=== PATIENT | female | born 1930 | race Caucasian/White ===

== ENCOUNTER 2016-04-18 13:26 | Inpatient (IN) | payer OTHER, BC ==
[2016-04-18] VITALS (7 sets, daily range): BP systolic 153–200; BP diastolic 64–84; PULSE 70–75; TEMP 36.6–37.5; O2SAT 95–98; Ht 149.9 cm; Wt 48.9 kg
[~2016-04-18] VITALS: Ht 149.9 cm; Wt 48.9 kg
[~2016-04-18 13:26] MED LIST: CTP2 PO; CYAN10005 PO; FELO5TAB PO; FLX5 PO; INSDGIPEN SC; LSN20 PO; MULT-190 PO; SIMV10TA2 PO; TPRSR50 PO; VITA400C15 PO; VTMD1000 PO
[2016-04-18] MEDS ORDERED: ACETAMINOPHEN 325 MG TAB PO PRN (14:00)
[2016-04-18] MEDS ORDERED: ONDANSETRON INJ 2 MG/ML 2 ML VIAL IV PRN (14:00)
[2016-04-18] MEDS ORDERED: GLUCOSE 10 TABS/TUBE PO PRN (14:30)
[2016-04-18] MEDS ORDERED: DEXTROSE 50% 50 ML SYR IV PRN (14:30)
[2016-04-18] MEDS ORDERED: GLUCOSE 40% GEL 15 GM TUBE PO PRN (14:30)
[2016-04-18] MEDS ORDERED: GLUCAGON FOR INJ 1 MG VIAL SQ PRN (14:30)
[2016-04-18 14:38] LABS: HEMATOCRIT 34.1 % (37-47); MEAN CORPUSCULAR HGB CONC 35.8 g/dl (32-36); MEAN PLATELET VOLUME 10.4 fL (7.4-10.4); PLATELET COUNT 222 K/uL (130-400); RED BLOOD COUNT 4.21 M/uL (4.2-5.4); WHITE BLOOD COUNT 5.54 K/uL (4.8-10.8)
--- NOTE | 2016-04-18 14:46 | DIAGNOSTIC IMAGING REPORT ---
CHEST ONE VIEW PORTABLE CLINICAL HISTORY: DYSPNEA COMPARISON STUDY: 04/18/2016 FINDINGS: The heart is borderline enlarged. There is no focal pulmonary consolidation. There is no overt failure. There is deviation of the trachea thoracic inlet to the left of midline. This raises the possibility of a thoracic inlet mass such as a right lobe thyroid goiter. The right paratracheal soft tissue shadow likely reflects ectatic great vessels.[ IMPRESSION: Possible right-sided thoracic inlet mass such as a thyroid goiter. No evidence of focal pulmonary consolidation. No evidence of overt failure. Electronically signed by: Adan Mcclellan M.D. 04/18/2016 2:44 PM
[2016-04-18 14:57] LABS: BUN/CREATININE RATIO 19.3 (10-20); CALCIUM 8.8 mg/dl (8.5-10.1); CREATININE 2.1 mg/dl (0.60-1.20); POTASSIUM 3.2 mmol/L (3.5-5.1)
[2016-04-18 15:36] LABS: THYROID STIMULATING HORMONE 2.11 uIu/ml (0.300-4.500)
[2016-04-18] MEDS ORDERED: SODIUM CHLORIDE 0.9% 1000ML 1,000 ML IV SCH (15:45)
[2016-04-18] MEDS ORDERED: NURSING VERBAL MED ORDER ONE ×3 (16:00→20:30)
[2016-04-18] MEDS ORDERED: POTASSIUM CHLORIDE 20 MEQ TABCR PO ONE (16:02)
[2016-04-18] MEDS ORDERED: HYDRALAZINE IV. PRN (16:15)
[2016-04-18] MEDS ORDERED: NSS + 20MEQ KCL 1000ML 1,000 ML IV SCH (16:30)
[2016-04-18] MEDS ORDERED: POTASSIUM CHLORIDE INJ 20 MEQ in SODIUM CHLORIDE 0.9% 1000ML 1,000 ML IV SCH (16:30)
--- NOTE | 2016-04-18 16:32 | History and Physical ---
History & Physical Date & Time of Service: Apr 18, 2016 at 15:48 Chief Complaint: Chf,Frequent Falls Primary Care Physician: Allan Hill M.D. History of Present Illness Source: patient, clinic records, hospital records Ms. Westbrook is an 85 y/o female with PMHx of T2DM, CKD Stage III, HTN, and HTN who was a direct admission from her PCP office for complaints of non-productive cough, sore throat, and generalized weakness with falls x 4 days. Patient states that she first developed the nonproductive cough prior to the sore throat. She says her throat hurts because of the coughing. At her PCP a CXR was performed that was negative for consolidation but states mild CHF with mild increase in cardiac size compared to previous studies with evidence of interstitial Dieudonne B lines at bases bilat. She also reports progressive generalized weakness and her legs intermittently giving out on her. She reports this has cause multiple falls. Last fall was today 04/18/16 as she was coming to the hospital from her PCP office. She states her sister brought her here and her sister fell causing her to fall. She is unsure if this was mechanical in nature however a Code Purple was initiated within the hospital. It appears that this was the event requiring the code. Patient however reports that she does not have any pain at this time. Only complaint is of generalized weakness. Per PCP note, strep and flu test negative. She reports elevated glucose readings over past week and has been drinking more fluids. Initial labs upon admission reveal: Na 124, Potassium 3.2, BNP 1775, TSH 2.110, and Trop 0.056. CXR performed here suggest possible R thoracic inlet mass questionable thyroid goiter. Patient is afebrile without leukocytosis. She will be admitted to telemetry for further evaluation and care. Past Medical/Surgical History Medical Problems: (1) Back pain Status: Chronic (2) CVA (cerebral vascular accident) Status: Resolved Family History Hypertension Social History Smoking Status: Former Smoker Drug Use: none Marital Status: Housing status: lives alone Occupational Status: retired Immunizations History of Influenza Vaccine: No History of Tetanus Vaccine?: No History of Pneumococcal: Yes Pneumococcal Date: Jun 27, 2002 History of Hepatitis B Vaccine: No Multi-Drug Resistant Organisms History of MDRO: No Allergies Coded Allergies: No Known Allergies (Verified , 10/24/10) Home Medications Scheduled Cholecalciferol (Vitamin D3), 1,000 UNITS PO DAILY Clonidine HCl (Clonidine HCl), 0.2 MG PO QAM Cyanocobalamin (Vitamin B-12), 1,000 MCG PO DAILY Cyclobenzaprine HCl (Cyclobenzaprine HCl), 5 MG PO QAM Felodipine (Plendil), 5 MG PO DAILY Insulin Glargine (Lantus Solostar), 10 UNIT SC BID Lisinopril (Lisinopril), 20 MG PO QAM Metoprolol Succinate (Metoprolol Succinate ER), 50 MG PO DAILY Ocuvite Preservision (Ocuvite Preservision), 1 TAB PO DAILY Simvastatin (Zocor), 10 MG PO QPM Tocopheryl Acet,Dl-Alpha (Vitamin E), 400 INTER.UNIT PO DAILY Review of Systems Constitutional: + weakness, No chills, No fever, No sweats Eyes: No worsening of vision ENT: + sore throat, No nasal symptoms Respiratory: + cough, + dyspnea on exertion, No dyspnea at rest, No shortness of breath, No sputum Cardiovascular: No chest pain Abdomen: No constipation, No diarrhea, No nausea, No pain, No vomiting Musculoskeletal: No calf pain, No swelling Genitourinary - Female: No dysuria Neurologic: + weakness Endocrine: No fatigue Hematologic / Lymphatic: No abnormal bleeding/bruising, No clotting problems Integumentary: No rash Physical Exam Vital Signs Date Time Temp Pulse Resp B/P Pulse Ox O2 Delivery O2 Flow Rate FiO2 04/18/16 14:00 36.6 75 18 182/84 97 Room Air General Appearance: WD/WN, no apparent distress, + thin Head: normocephalic, atraumatic Eyes: sclerae normal ENT: hearing grossly normal Neck: supple, no JVD, trachea midline Respiratory/Chest: no respiratory distress, no accessory muscle use, + crackles (bases bilat ) Cardiovascular: regular rate, rhythm, no gallop, no murmur Abdomen/GI: normal bowel sounds, non tender, soft Back: normal inspection, no CVA tenderness Extremities/Musculoskelatal: no calf tenderness, no pedal edema Neurologic/Psych: alert, oriented x 3 Skin: normal color, warm/dry Diagnostics Laboratory Results Results Past 24 Hours Test 04/18/16 14:23 04/18/16 14:24 Range/Units White Blood Count 5.54 4.8-10.8 K/uL Red Blood Count 4.21 4.2-5.4 M/uL Hemoglobin 12.2 12.0-16.0 g/dL Hematocrit 34.1 37-47 % Mean Corpuscular Volume 81.0 80-100 fL Mean Corpuscular Hemoglobin 29.0 25-34 pg Mean Corpuscular Hemoglobin Concent 35.8 32-36 g/dl RDW Standard Deviation 40.2 36.4-46.3 fL RDW Coefficient of Variation 13.4 11.5-14.5 % Platelet Count 222 130-400 K/uL Mean Platelet Volume 10.4 7.4-10.4 fL Sodium Level 124 136-145 mmol/L Potassium Level 3.2 3.5-5.1 mmol/L Chloride Level 87 98-107 mmol/L Carbon Dioxide Level 24 21-32 mmol/L Anion Gap 13.0 3-11 mmol/L Blood Urea Nitrogen 41 7-18 mg/dl Creatinine 2.10 0.60-1.20 mg/dl Est Creatinine Clear Calc Drug Dose 12.9 ml/min Estimated GFR () 23.9 Estimated GFR (Non- 20.6 BUN/Creatinine Ratio 19.3 10-20 Random Glucose 270 70-99 mg/dl Calcium Level 8.8 8.5-10.1 mg/dl Troponin I 0.056 0-0.045 ng/ml Pro-B-Type Natriuretic Peptide 1775 0-1800 pg/ml Thyroid Stimulating Hormone (TSH) 2.110 0.300-4.500 uIu/ml Bedside Glucose 275 70-90 mg/dl Impression Assessment and Plan Ms. Westbrook is an 85 y/o female with PMHx of T2DM, CKD Stage III, HTN, and HTN who was a direct admission from her PCP office for complaints of non-productive cough, sore throat, and generalized weakness with falls x 4 days. Initial labs upon admission reveal: Na 124, Potassium 3.2, BNP 1775, TSH 2.110, and Trop 0.056. CXR performed here suggest possible R thoracic inlet mass questionable thyroid goiter. Patient is afebrile without leukocytosis. She will be admitted to telemetry for further evaluation and care. Acute Congestive Heart Failure? - Imaging and Studies -- CXR (outpatient) - mild increased cardiac size, mild CHF, interstitial Dieudonne B lines at lung bases bilat; early failure -- CXR - image and report reviewed - possible R thoracic inlet mass - thyroid goiter? -- BNP 1775 -- Echo (2011) - EF 55-60%; moderate L atrium dilation; severely elevated RVSP; no mention of diastolic dysfunction - Echo - pending Elevated Troponin: Possibly 2/2 REGGIE will R/O ACS - Serial cardiac enzymes - initial trop 0.056 REGGIE Superimposed on CKD Stage III: - Cr baseline possibly 1.5-1.6 - Only 1 L NSS + 20 mEq KCL Hyponatremia: - Will place a fluid restriction and trend Na - Pending re-evaluation will need to R/O SIADH Hypokalemia: - 1 L NSS + 20 mEq KCl then stop - KCl 40 mEq now - Trend BMP HTN: - Felodipine 5 mg daily - Lisinopril 20 mg daily - Metoprolol Succ 50 mg daily - Hydralazine PRN T2DM: - Lantus 10 units SC BID - SSI - goal range 100-150; correction factor 35 Frequent Falls: - PT/OT Evaluations DVT Prophylaxis: - Heparin 5000 units Q12H Code Status: - FULL RESUSCITATION PA Physician Supervision Note: I interviewed and examined the patient. Discussed with Amy Brito PAC and agree with findings and plan as documented in the note. Any exceptions or clarifications are listed here: None Pt with recent fall and eval at pcp with concern for cough and suspected CHF Echo reveal preserved EF and no significant valve disease, probable pulmonary htn, consider cough bronchitis or ? 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 Y/N: Yes Risk Level: High Given or contraindicated: Unfractionated heparin SQ
[2016-04-18] MEDS ORDERED: HydrALAZINE HCL 20 MG/ML VIAL IV. PRN (16:45)
[2016-04-18 16:54] LABS: INR 0.9 (0.9-1.1); PROTHROMBIN TIME (PATIENT) 10.1 SECONDS (9.0-12.0)
--- NOTE | 2016-04-18 18:10 | ECHOCARDIOGRAM REPORT ---
*NOTICE TO RECEIVING DEMOCRAT AGENCY This information is strictly Confidential and protected under [place] law. [place] law prohibits you from making any further disclosure of this information unless further disclosure is expressly permitted by the written consent of the person to whom it pertains or is authorized by law. A general authorization for the release of medical or other information is not sufficient for this purpose. Hospital accepts no responsibility if the information is made available to any other person, INCLUDING THE PATIENT. Interpretation Summary * Name: NORMA VAZQUEZ Study Date: 04/18/2016 03:12 PM BP: 182/84 mmHg * Patient Location: C.2T\S\S242\S\2 HR: 75 * : 1930 (M/d/yyy) Gender: Female Height: 59 in * Age: 85 yrs Ethnicity: CA Weight: 106 lb * Ordering Physician: Dayne Hager * Performed By: Lavonne Stewart RDCS * * Reason For Study: Congestive heart failure * BSA: 1.4 m2 * -- Conclusions -- * 1. Normal left ventricular size and systolic function. EF 55-60%. No regional wall motion abnormalities. Mild concentric left ventricular hypertrophy. * 2. There is mild mitral regurgitation. * 3. Normal estimated right ventricular systolic pressure; RVSP 37 mmHg. * 4. Compared to prior study on 11/05/2010, estimated RVSP has improved and tricuspid regurgitation no longer appears moderate. Procedure Details * A complete two-dimensional transthoracic echocardiogram was performed (2D, M-mode, Doppler and color flow Doppler). Left Ventricle * Normal left ventricular size and systolic function. EF 55-60%. No regional wall motion abnormalities. Mild concentric left ventricular hypertrophy. Right Ventricle * The right ventricle is normal in size and function. * The right ventricular systolic function is normal as assessed by tricuspid annular plane systolic excursion (TAPSE) (normal >1.5 cm). Atria * The left atrial size is normal. * Right atrial size is normal. * There is no evidence of atrial septal defect, but resolution does not allow assessment for a patent foramen ovale. Mitral Valve * There is mild mitral annular calcification. * There is no mitral valve stenosis. * There is mild mitral regurgitation. Tricuspid Valve * The tricuspid valve is not well visualized, but is grossly normal. * There is no tricuspid stenosis. * There is mild tricuspid regurgitation. Aortic Valve * The aortic valve is trileaflet. * No hemodynamically significant valvular aortic stenosis. * Trace aortic regurgitation. Pulmonic Valve * The pulmonary valve is inadequately visualized, but the Doppler data is adequate for interpretation. * There is no pulmonic valvular stenosis. * There is no significant pulmonary regurgitation. Great Vessels * The aortic root is normal size. * Ascending aorta of normal dimension * Normal pulmonary venous flow pattern. Pericardium/Pleural * There is no pericardial effusion. Great Vessels * Normal inferior vena cava size and collapsability with sniff indicates a normal right atrial pressure of 3 mmHg MMode 2D Measurements and Calculations IVSd 1.2 cm LVIDd 3.8 cm LVIDs 2.7 cm LVPWd 1.2 cm IVS/LVPW 0.99 FS 30.3 % EDV(Teich) 63.0 ml ESV(Teich) 26.2 ml EF(Teich) 58.4 % EDV(cubed) 56.0 ml ESV(cubed) 19.0 ml EF(cubed) 66.2 % LV mass(C)d 149.0 grams LV mass(C)dI 105.8 grams/m\S\2 CO(Teich) 2.9 l/min CI(Teich) 2.1 l/min/m\S\2 SV(Teich) 36.8 ml SI(Teich) 26.1 ml/m\S\2 CO(cubed) 3.0 l/min CI(cubed) 2.1 l/min/m\S\2 SV(cubed) 37.1 ml SI(cubed) 26.3 ml/m\S\2 Ao root diam 3.2 cm Ao root area 8.1 cm\S\2 ACS 1.4 cm LA dimension 3.1 cm asc Aorta Diam 3.0 cm LA/Ao 0.96 LVAd ap4 25.3 cm\S\2 LVLd ap4 7.0 cm EDV(MOD-sp4) 78.0 ml LVAs ap4 16.1 cm\S\2 LVLs ap4 6.2 cm ESV(MOD-sp4) 37.0 ml EF(MOD-sp4) 52.6 % LVAd ap2 19.1 cm\S\2 LVLd ap2 6.5 cm EDV(MOD-sp2) 46.0 ml LVAs ap2 10.8 cm\S\2 LVLs ap2 5.0 cm ESV(MOD-sp2) 20.0 ml EF(MOD-sp2) 56.5 % CO(MOD-sp4) 3.3 l/min CI(MOD-sp4) 2.3 l/min/m\S\2 SV(MOD-sp4) 41.0 ml SI(MOD-sp4) 29.1 ml/m\S\2 CO(MOD-sp2) 2.1 l/min CI(MOD-sp2) 1.5 l/min/m\S\2 SV(MOD-sp2) 26.0 ml SI(MOD-sp2) 18.5 ml/m\S\2 Doppler Measurements and Calculations MV E max marcus 86.1 cm/sec MV A max marcus 71.6 cm/sec MV E/A 1.2 MV V2 max 118.4 cm/sec MV max PG 5.6 mmHg MV V2 mean 57.5 cm/sec MV mean PG 1.6 mmHg MV V2 VTI 37.3 cm MV dec time 0.28 sec Ao V2 max 121.6 cm/sec Ao max PG 5.9 mmHg Ao max PG (full) 3.8 mmHg LV V1 max PG 2.1 mmHg LV V1 max 72.0 cm/sec PA V2 max 105.9 cm/sec PA max PG 4.5 mmHg PA acc slope 475.1 cm/sec\S\2 PA acc time 0.13 sec TR max marcus 290.2 cm/sec RVSP(TR) 37.0 mmHg RAP systole 3.0 mmHg PA pr(Accel) 22.0 mmHg
[2016-04-18] MEDS ORDERED: CHLORASEPTIC 1.4% SOLN 180 ML BTL MT PRN (20:15)
[2016-04-18] MEDS ORDERED: LORAZEPAM 2 MG/ML 1 ML VIAL IV PRN (20:15)
--- NOTE | 2016-04-18 20:21 | DIAGNOSTIC IMAGING REPORT ---
ULTRASOUND BILATERAL INTERNAL JUGULAR VEINS CLINICAL HISTORY: CHF. Frequent falls. Clinical concern for jugular vein thrombus. COMPARISON STUDY: No priors. FINDINGS: Real-time, grayscale, and color Doppler sonography of the right and left internal jugular veins is performed to assess for deep venous thrombosis. There is no sonographic evidence of deep venous thrombosis identified in the right or left internal jugular vein. Both vessels are patent and normally compressible. Only the jugular veins were assessed at the referring clinician's request. IMPRESSION: There is no sonographic evidence of deep venous thrombosis in the right or left internal jugular vein. Electronically signed by: Shashank Pang M.D. 04/18/2016 8:19 PM
[2016-04-18] MEDS: SIMVASTATIN 10 MG TAB PO SCH (20:29)
[2016-04-18] MEDS: HydrALAZINE HCL 20 MG/ML VIAL IV. PRN (20:30)
--- NOTE | 2016-04-18 20:56 | DIAGNOSTIC IMAGING REPORT ---
ULTRASOUND OF THE THYROID GLAND CLINICAL HISTORY: Thyroid goiter. COMPARISON STUDY: Thyroid ultrasound dated 03/16/2009. TECHNIQUE: Real-time, grayscale, and color flow sonography of the thyroid gland is performed utilizing a high-frequency linear transducer. Images are reviewed in the transverse and longitudinal planes. FINDINGS: Right lobe: The right lobe of the thyroid gland is atrophic and heterogeneous in echotexture, measuring 3.0 x 1.5 x 1.4 cm. A hyperechoic nodule in the upper pole measures 0.5 x 0.7 x 0.6 cm. Left lobe: The left lobe of the thyroid gland is atrophic and heterogeneous in echotexture, measuring 3.0 x 0.8 x 1.2 cm. No discrete nodules are identified. Isthmus: The thyroid isthmus is heterogeneous and measures 0.2 cm in AP diameter. IMPRESSION: The thyroid gland is atrophic and heterogeneous in echotexture. Electronically signed by: Shashank Pang M.D. 04/18/2016 8:54 PM
[2016-04-18 21:10] LABS: CKMB/CK RATIO 2.6 (0-3.0)
[2016-04-18] MEDS ORDERED: FUROSEMIDE INJ 20 MG in SYRINGE 0 ML IV ONE (21:30)
[2016-04-18] MEDS: LEVOFLOXACIN 500 MG TAB PO SCH (22:05)
[2016-04-18] MEDS: INSULIN GLARGINE SOLOSTAR 100 UNITS/ML 3 ML PEN SC SCH (22:08)
[2016-04-18] MEDS: INSULIN ASPART 100 UNITS/ML 3 ML PEN SC SCH (22:08)
[2016-04-18] MEDS: HEPARIN SOD 5000 UNIT/0.5 ML CARP SQ SCH (22:09)
[2016-04-19] VITALS (8 sets, daily range): BP systolic 91–173; BP diastolic 40–76; PULSE 49–76; TEMP 36.8–37.4; O2SAT 95–99
[2016-04-19 02:48] LABS: CKMB/CK RATIO 1.9 (0-3.0)
[2016-04-19 07:26] LABS: COMPLETE YES; HEMATOCRIT 32.6 % (37-47); IG% 0.2 %; LYMPH ABS # 1.19 K/uL (1.2-3.4); MEAN CELL VOLUME 81.1 fL (80-100); MEAN CORPUSCULAR HEMOGLOBIN 28.6 pg (25-34); MEAN CORPUSCULAR HGB CONC 35.3 g/dl (32-36); MEAN PLATELET VOLUME 9.9 fL (7.4-10.4); MONO % 18.1 %; NEUT % 58.7 %; PLATELET COUNT 194 K/uL (130-400); RED BLOOD COUNT 4.02 M/uL (4.2-5.4); WHITE BLOOD COUNT 5.18 K/uL (4.8-10.8)
[2016-04-19 08:10] LABS: BUN/CREATININE RATIO 18.2 (10-20); CALCIUM 8.4 mg/dl (8.5-10.1); CREATININE 1.7 mg/dl (0.60-1.20); POTASSIUM 3.5 mmol/L (3.5-5.1)
[2016-04-19] MEDS: LISINOPRIL 20 MG TAB PO SCH (08:18)
[2016-04-19] MEDS: METOPROLOL SUCC 50MG EXT REL TAB PO SCH (08:18)
[2016-04-19] MEDS: CLONIDINE HCL 0.1 MG TAB PO SCH (08:18)
[2016-04-19] MEDS: FELODIPINE 5 MG TABCR PO SCH (08:18)
[2016-04-19] MEDS: CYCLOBENZAPRINE HCL 5 MG TAB PO SCH (08:18)
[2016-04-19] MEDS: HEPARIN SOD 5000 UNIT/0.5 ML CARP SQ SCH ×2 (08:22→21:00)
[2016-04-19] MEDS: INSULIN GLARGINE SOLOSTAR 100 UNITS/ML 3 ML PEN SC SCH ×2 (08:22→21:00)
[2016-04-19] MEDS: INSULIN ASPART 100 UNITS/ML 3 ML PEN SC SCH ×4 (08:23→20:56)
[2016-04-19] MEDS: LEVOFLOXACIN 500 MG TAB PO SCH (11:41)
--- NOTE | 2016-04-19 14:45 | Progress Note ---
Subjective Date of Service: Apr 19, 2016. Subjective Pt evaluation today including: conversation w/ patient, physical exam, lab review, review of studies, review of inpatient medication list Pain: no pain PO Intake: adequate Voiding: no voiding problems patient reports feeling better after some IV fluids yesterday and she was started on Levaquin she still is feeling weak and unsure she can be at home safely, she fell twice yesterday therapy is ordered and will work with her no telemetry needs, discussed transfer to medical floor Review of Systems Constitutional: + fatigue, + weakness Respiratory: + dyspnea on exertion Neurologic: + balance problems, + weakness All Other Systems: Reviewed and Negative Medications Current Inpatient Medications Medications (Trade) Dose Ordered Sig/Tesha Route Start Time Stop Time Status Last Admin Dose Admin Acetaminophen (Tylenol Tab) 650 mg Q4H PRN PO 04/18/16 14:00 05/18/16 13:59 Ondansetron HCl (Zofran Inj) 4 mg Q6H PRN IV 04/18/16 14:00 05/18/16 13:59 Cyclobenzaprine HCl (Flexeril Tab) 5 mg QAM PO 04/19/16 09:00 05/19/16 08:59 04/19/16 08:18 5 MG Felodipine (Plendil Tabcr) 5 mg DAILY PO 04/19/16 09:00 05/19/16 08:59 04/19/16 08:18 5 MG Insulin Glargine (Lantus Solostar Pen) 10 unit BID SC 04/18/16 21:00 05/18/16 20:59 04/19/16 08:22 10 UNIT Lisinopril (Zestril Tab) 20 mg QAM PO 04/19/16 09:00 05/19/16 08:59 04/19/16 08:18 20 MG Metoprolol Succinate (Toprol Xl Tab) 50 mg DAILY PO 04/19/16 09:00 05/19/16 08:59 04/19/16 08:18 50 MG Simvastatin (Zocor Tab) 10 mg QPM PO 04/18/16 21:00 05/18/16 20:59 04/18/16 20:29 10 MG Clonidine HCl (Catapres Tab) 0.2 mg QAM PO 04/19/16 09:00 05/19/16 08:59 04/19/16 08:18 0.2 MG Glucose (Glucose 40% Gel) 15-30 GRAMS 15 GRAMS... UD PRN PO 04/18/16 14:30 05/18/16 14:29 Glucose (Glucose Chew Tab) 4-8 Tablets 4 Tabl... UD PRN PO 04/18/16 14:30 05/18/16 14:29 Dextrose (Dextrose 50% 50ML Syringe) 25-50ML OF 50% DW IV FOR... UD PRN IV 04/18/16 14:30 05/18/16 14:29 Glucagon (Glucagon Inj) 1 mg UD PRN SQ 04/18/16 14:30 05/18/16 14:29 Insulin Aspart (novoLOG ASPART) SLIDING SCALE G... ACHS SC 04/18/16 21:00 05/18/16 20:59 04/18/16 22:08 2 UNITS Heparin Sodium (Porcine) (Heparin Sq 5000 Unit/0.5ml) 5,000 unit Q12 SQ 04/18/16 21:00 05/18/16 20:59 04/19/16 08:22 5,000 UNIT Phenol (Chloraseptic 1.4% [place]) 2 sprays DAILY PRN MT 04/18/16 20:15 05/18/16 20:14 04/18/16 22:14 2 SPRAYS Lorazepam (Ativan Inj) 0.5 mg Q4H PRN IV 04/18/16 20:15 05/18/16 20:14 Hydralazine HCl (HydrALAZINE INJ) 10 mg Q4 PRN IV. 04/18/16 20:45 05/18/16 20:44 04/18/16 20:30 10 MG Levofloxacin (Levaquin Tab) 500 mg DAILY@11 PO 04/18/16 21:30 04/28/16 21:29 04/19/16 11:41 500 MG Objective Vital Signs Date Time Temp Pulse Resp B/P Pulse Ox O2 Delivery O2 Flow Rate FiO2 04/19/16 13:27 Room Air 04/19/16 13:17 36.8 53 22 119/54 99 Room Air 04/19/16 12:00 Room Air 04/19/16 11:38 36.8 59 18 91/55 98 Room Air 04/19/16 11:23 37.1 67 18 95 04/19/16 08:00 Room Air 04/19/16 07:40 37.1 67 18 161/70 95 Room Air 04/19/16 04:00 Room Air 04/19/16 03:29 37.4 70 18 164/76 96 Room Air 04/18/16 23:59 Room Air 04/18/16 23:25 37.5 71 18 153/64 95 Room Air 04/18/16 21:53 166/68 04/18/16 20:00 Room Air 04/18/16 19:22 36.8 71 22 200/66 98 Room Air 04/18/16 17:40 70 18 167/75 04/18/16 16:40 70 16 182/77 04/18/16 16:00 97 Room Air Physical Exam General Appearance: WD/WN, no apparent distress Eyes: normal inspection, EOMI, sclerae normal Neck: supple, no adenopathy, no JVD, trachea midline Respiratory/Chest: chest non-tender, lungs clear, normal breath sounds, no respiratory distress, no accessory muscle use Cardiovascular: regular rate, rhythm, no edema, no gallop, no JVD, no murmur Abdomen: normal bowel sounds, non tender, soft, no organomegaly Extremities: normal range of motion, non-tender, normal inspection, no pedal edema, no calf tenderness Neurologic/Psychiatric: program services planner II-XII nml as tested, alert, normal mood/affect, oriented x 3, + motor weakness (generalized, cannot stand independently) Skin: normal color, warm/dry, no rash Laboratory Results Last 24 Hours Test 04/18/16 20:12 04/18/16 20:20 04/19/16 02:05 04/19/16 07:09 Bedside Glucose 203 mg/dl Total Creatine Kinase 265 U/L 231 U/L Creatine Kinase MB 6.9 ng/ml 4.5 ng/ml Creatine Kinase MB Ratio 2.6 1.9 Troponin I 0.075 ng/ml 0.072 ng/ml White Blood Count 5.18 K/uL Red Blood Count 4.02 M/uL Hemoglobin 11.5 g/dL Hematocrit 32.6 % Mean Corpuscular Volume 81.1 fL Mean Corpuscular Hemoglobin 28.6 pg Mean Corpuscular Hemoglobin Concent 35.3 g/dl Platelet Count 194 K/uL Mean Platelet Volume 9.9 fL Neutrophils (%) (Auto) 58.7 % Lymphocytes (%) (Auto) 23.0 % Monocytes (%) (Auto) 18.1 % Eosinophils (%) (Auto) 0.0 % Basophils (%) (Auto) 0.0 % Neutrophils # (Auto) 3.04 K/uL Lymphocytes # (Auto) 1.19 K/uL Monocytes # (Auto) 0.94 K/uL Eosinophils # (Auto) 0.00 K/uL Basophils # (Auto) 0.00 K/uL RDW Standard Deviation 41.0 fL RDW Coefficient of Variation 13.7 % Immature Granulocyte % (Auto) 0.2 % Immature Granulocyte # (Auto) 0.01 K/uL Sodium Level 133 mmol/L Potassium Level 3.5 mmol/L Chloride Level 97 mmol/L Carbon Dioxide Level 25 mmol/L Anion Gap 11.0 mmol/L Blood Urea Nitrogen 31 mg/dl Creatinine 1.70 mg/dl Est Creatinine Clear Calc Drug Dose 15.9 ml/min Estimated GFR () 30.9 Estimated GFR (Non- 26.6 BUN/Creatinine Ratio 18.2 Random Glucose 82 mg/dl Calcium Level 8.4 mg/dl Magnesium Level 2.0 mg/dl Test 04/19/16 11:24 Bedside Glucose 131 mg/dl Assessment and Plan Ms. Westbrook is an 85 y/o female with PMHx of T2DM, CKD Stage III, HTN, and HTN who was a direct admission from her PCP office for complaints of non-productive cough, sore throat, and generalized weakness with falls x 4 days. Initial labs upon admission reveal: Na 124, Potassium 3.2, BNP 1775, TSH 2.110, and Trop 0.056. CXR performed here suggest possible R thoracic inlet mass questionable thyroid goiter. Patient is afebrile without leukocytosis. She will be admitted to telemetry for further evaluation and care. REGGIE Superimposed on CKD Stage III: Cr 2.1 on admission suggesting some acute failure - Cr baseline possibly 1.5-1.6 - given 1 L NSS + 20 mEq KCL - Cr improved to 1.7 today, acute component resolved, repeat labs in AM, encourage PO intake Weakness and falls due to pharyngitis, dehydration, hyponatremia: improved strength but not at baseline continue Levaquin for pharyngitis, complete 7 days total PT/OT ordered Elevated Troponin: Possibly 2/2 REGGIE will R/O ACS - Serial cardiac enzymes - initial trop 0.056, repeats both 0.07, doubt any clinical significance, no chest pain or EKG changes - likely up due to renal failure, safe to transfer off telemetry Hyponatremia: - nearly normal today, lift fluid restriction, due to dehydration, improved with NSS Hypokalemia: - resolved with IV and PO replacement HTN: - Felodipine 5 mg daily - Lisinopril 20 mg daily - Metoprolol Succ 50 mg daily - Hydralazine PRN T2DM: - Lantus 10 units SC BID - SSI - goal range 100-150; correction factor 35 Frequent Falls: - PT/OT Evaluations DVT Prophylaxis: - Heparin 5000 units Q12H Code Status: - FULL RESUSCITATION
[2016-04-19] MEDS: SIMVASTATIN 10 MG TAB PO SCH (21:06)
[2016-04-19] MEDS ORDERED: NURSING VERBAL MED ORDER ONE (22:00)
[2016-04-20] VITALS (11 sets, daily range): BP systolic 97–180; BP diastolic 50–75; PULSE 50–72; TEMP 36.2–37.2; O2SAT 94–97
[2016-04-20] MEDS: HydrALAZINE HCL 20 MG/ML VIAL IV. PRN ×2 (00:48→19:38)
[2016-04-20] MEDS: INSULIN ASPART 100 UNITS/ML 3 ML PEN SC SCH ×4 (07:34→21:28)
[2016-04-20] MEDS: LISINOPRIL 20 MG TAB PO SCH (09:46)
[2016-04-20] MEDS: CLONIDINE HCL 0.1 MG TAB PO SCH (09:46)
[2016-04-20] MEDS: LEVOFLOXACIN 500 MG TAB PO SCH (09:46)
[2016-04-20] MEDS: CYCLOBENZAPRINE HCL 5 MG TAB PO SCH ×2 (09:46→09:58)
[2016-04-20] MEDS: FELODIPINE 5 MG TABCR PO SCH (09:46)
[2016-04-20] MEDS: METOPROLOL SUCC 50MG EXT REL TAB PO SCH (09:47)
[2016-04-20] MEDS: HEPARIN SOD 5000 UNIT/0.5 ML CARP SQ SCH ×2 (09:54→21:29)
[2016-04-20 10:08] LABS: BUN/CREATININE RATIO 18.2 (10-20); CALCIUM 8.6 mg/dl (8.5-10.1); CREATININE 2.1 mg/dl (0.60-1.20); POTASSIUM 3.9 mmol/L (3.5-5.1)
[2016-04-20] MEDS ORDERED: SODIUM CHLORIDE 1 GM TAB PO ONE (10:25)
[2016-04-20] MEDS ORDERED: INSDGI SC (11:09)
[2016-04-20] MEDS ORDERED: METO25TA3 PO (11:11)
[2016-04-20] MEDS ORDERED: NURSING VERBAL MED ORDER ONE ×2 (11:30→17:45)
--- NOTE | 2016-04-20 15:46 | Progress Note ---
Subjective Date of Service: Apr 20, 2016. Subjective Pt evaluation today including: conversation w/ patient, conversation w/ family (sister), physical exam, lab review, review of inpatient medication list Pain: no pain PO Intake: adequate Voiding: no voiding problems patient feeling slightly better today, still quite weak she felt "off" later in the morning and found pulse was in 50's which was new for her reviewed medications, found she was actually being given too much metoprolol, dose corrected discussed going to rehab, she is agreeable, case management with discuss with her further Review of Systems Constitutional: + fatigue, + weakness Neurologic: + balance problems All Other Systems: Reviewed and Negative Medications Current Inpatient Medications Medications (Trade) Dose Ordered Sig/Tesha Route Start Time Stop Time Status Last Admin Dose Admin Acetaminophen (Tylenol Tab) 650 mg Q4H PRN PO 04/18/16 14:00 05/18/16 13:59 Ondansetron HCl (Zofran Inj) 4 mg Q6H PRN IV 04/18/16 14:00 05/18/16 13:59 Felodipine (Plendil Tabcr) 5 mg DAILY PO 04/19/16 09:00 05/19/16 08:59 04/20/16 09:46 5 MG Insulin Glargine (Lantus Solostar Pen) 10 unit BID SC 04/18/16 21:00 05/18/16 20:59 Future hold 04/19/16 08:22 10 UNIT Lisinopril (Zestril Tab) 20 mg QAM PO 04/19/16 09:00 05/19/16 08:59 04/20/16 09:46 20 MG Simvastatin (Zocor Tab) 10 mg QPM PO 04/18/16 21:00 05/18/16 20:59 04/19/16 21:06 10 MG Glucose (Glucose 40% Gel) 15-30 GRAMS 15 GRAMS... UD PRN PO 04/18/16 14:30 05/18/16 14:29 Glucose (Glucose Chew Tab) 4-8 Tablets 4 Tabl... UD PRN PO 04/18/16 14:30 05/18/16 14:29 Dextrose (Dextrose 50% 50ML Syringe) 25-50ML OF 50% DW IV FOR... UD PRN IV 04/18/16 14:30 05/18/16 14:29 Glucagon (Glucagon Inj) 1 mg UD PRN SQ 04/18/16 14:30 05/18/16 14:29 04/19/16 21:18 1 MG Insulin Aspart (novoLOG ASPART) SLIDING SCALE G... ACHS SC 04/18/16 21:00 05/18/16 20:59 04/20/16 13:46 2 UNITS Heparin Sodium (Porcine) (Heparin Sq 5000 Unit/0.5ml) 5,000 unit Q12 SQ 04/18/16 21:00 05/18/16 20:59 04/20/16 09:54 5,000 UNIT Phenol (Chloraseptic 1.4% Falcon) 2 sprays DAILY PRN MT 04/18/16 20:15 05/18/16 20:14 04/18/16 22:14 2 SPRAYS Lorazepam (Ativan Inj) 0.5 mg Q4H PRN IV 04/18/16 20:15 05/18/16 20:14 Hydralazine HCl (HydrALAZINE INJ) 10 mg Q4 PRN IV. 04/18/16 20:45 05/18/16 20:44 04/20/16 00:48 10 MG Levofloxacin (Levaquin Tab) 500 mg DAILY@11 PO 04/18/16 21:30 04/28/16 21:29 04/20/16 09:46 500 MG Sodium Chloride (Sodium Chloride Tab) 1 gm BID PO 04/20/16 21:00 05/20/16 20:59 Metoprolol Succinate (Toprol Xl Tab) 25 mg DAILY PO 04/21/16 09:00 05/21/16 08:59 Objective Vital Signs Date Time Temp Pulse Resp B/P Pulse Ox O2 Delivery O2 Flow Rate FiO2 04/20/16 15:17 36.2 67 16 101/53 94 Room Air 04/20/16 13:49 54 04/20/16 12:02 50 106/53 04/20/16 11:20 37.0 53 16 97/50 97 Room Air 04/20/16 11:19 37.0 72 16 95 Room Air 04/20/16 09:54 72 148/56 04/20/16 07:52 Room Air 04/20/16 07:52 37.0 65 16 127/52 95 Room Air 04/20/16 01:42 65 123/52 04/20/16 00:44 59 173/68 04/19/16 23:35 37.1 59 16 173/74 96 Room Air 04/19/16 23:30 Room Air 04/19/16 18:06 76 135/55 04/19/16 15:50 Room Air 04/19/16 15:44 37.0 49 16 107/40 97 Room Air Physical Exam General Appearance: WD/WN, no apparent distress Eyes: normal inspection, EOMI, sclerae normal ENT: normal ENT inspection, hearing grossly normal, pharynx normal Neck: supple, no adenopathy, no JVD, trachea midline Respiratory/Chest: chest non-tender, lungs clear, normal breath sounds, no respiratory distress, no accessory muscle use Cardiovascular: regular rate, rhythm, no edema, no gallop, no JVD, no murmur Abdomen: normal bowel sounds, non tender, soft, no organomegaly Extremities: normal range of motion, non-tender, normal inspection, no pedal edema, no calf tenderness Neurologic/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, alert, normal mood/affect, oriented x 3, + abnormal gait, + motor weakness Skin: normal color, warm/dry, no rash Laboratory Results Last 24 Hours Test 04/19/16 16:40 04/19/16 21:05 04/19/16 21:43 04/19/16 23:39 Bedside Glucose 80 mg/dl 77 mg/dl 154 mg/dl 243 mg/dl Test 04/20/16 07:27 04/20/16 07:59 04/20/16 09:32 04/20/16 11:00 Bedside Glucose 62 mg/dl 124 mg/dl Sodium Level 128 mmol/L Potassium Level 3.9 mmol/L Chloride Level 92 mmol/L Carbon Dioxide Level 21 mmol/L Anion Gap 15.0 mmol/L Blood Urea Nitrogen 38 mg/dl Creatinine 2.10 mg/dl Est Creatinine Clear Calc Drug Dose 12.9 ml/min Estimated GFR () 23.9 Estimated GFR (Non- 20.6 BUN/Creatinine Ratio 18.2 Random Glucose 203 mg/dl Calcium Level 8.6 mg/dl Osmolality 274 mOsm/kg Test 04/20/16 11:14 Bedside Glucose 196 mg/dl Assessment and Plan Ms. Westbrook is an 85 y/o female with PMHx of T2DM, CKD Stage III, HTN, and HTN who was a direct admission from her PCP office for complaints of non-productive cough, sore throat, and generalized weakness with falls x 4 days. Initial labs upon admission reveal: Na 124, Potassium 3.2, BNP 1775, TSH 2.110, and Trop 0.056. CXR performed here suggest possible R thoracic inlet mass questionable thyroid goiter. Patient is afebrile without leukocytosis. She will be admitted to telemetry for further evaluation and care. REGGIE Superimposed on CKD Stage III: Cr 2.1 on admission suggesting some acute failure, improved to 1.7 but then back up to 2.1 - adequately hydrated, suggests that her baseline may be closer to 2, adequate UO - hold on further IV fluid since she is drinking well - continue to monitor Cr Weakness and falls due to pharyngitis, dehydration, hyponatremia: improved strength but not at baseline continue Levaquin for pharyngitis, complete 7 days total PT/OT ordered - recommend rehab CM consulted Elevated Troponin: Possibly 2/2 REGGIE will R/O ACS - Serial cardiac enzymes - initial trop 0.056, repeats both 0.07, doubt any clinical significance, no chest pain or EKG changes - likely up due to renal failure, safe to transfer off telemetry Hyponatremia: initially thought to be dehydration, Na up to 133 with NSS over night, but now repeat is 128 - serum osmolality just slightly low at 273, waiting on urine sample for urine osmolality to see if it is appropriate or not to r/o SIADH - TSH normal, will check AM cortisol level, not taking thiazide as outpatient - will start on sodium chloride 1gm BID and follow sodium level Bradycardia: due to inappropriate dosing of Toprol, adjusted to 25mg from 50mg, monitor HR Hypokalemia: - resolved with IV and PO replacement HTN: - Felodipine 5 mg daily - Lisinopril 20 mg daily - Metoprolol Succ 25mg daily - Hydralazine PRN T2DM: - Lantus 10 units SC daily - SSI - goal range 100-150; correction factor 35 Frequent Falls: - PT/OT Evaluations: rehab DVT Prophylaxis: - Heparin 5000 units Q12H Code Status: - FULL RESUSCITATION
[2016-04-20] MEDS: SIMVASTATIN 10 MG TAB PO SCH (21:22)
[2016-04-20] MEDS: SODIUM CHLORIDE 1 GM TAB PO SCH (21:23)
[2016-04-21 03:56] VITALS: BP 147/68; PULSE 93; TEMP 36.8; O2SAT 93
[2016-04-21 06:58] VITALS: BP 152/60; PULSE 66; TEMP 36.8; O2SAT 95
[2016-04-21 07:19] LABS: HEMATOCRIT 33.5 % (37-47); MEAN CELL VOLUME 81.5 fL (80-100); MEAN CORPUSCULAR HEMOGLOBIN 28.5 pg (25-34); MEAN CORPUSCULAR HGB CONC 34.9 g/dl (32-36); MEAN PLATELET VOLUME 10.1 fL (7.4-10.4); PLATELET COUNT 247 K/uL (130-400); RED BLOOD COUNT 4.11 M/uL (4.2-5.4); WHITE BLOOD COUNT 5.25 K/uL (4.8-10.8)
[2016-04-21 07:51] LABS: BUN/CREATININE RATIO 16.9 (10-20); CALCIUM 8.7 mg/dl (8.5-10.1); CREATININE 2.2 mg/dl (0.60-1.20); MAGNESIUM 2.3 mg/dl (1.8-2.4)
[2016-04-21] MEDS: METOPROLOL SUCC 25MG EXT REL TAB PO SCH (08:59)
[2016-04-21] MEDS: FELODIPINE 5 MG TABCR PO SCH (08:59)
[2016-04-21] MEDS ORDERED: INSULIN GLARGINE SOLOSTAR 100 UNITS/ML 3 ML PEN SC SCH (09:00)
[2016-04-21] MEDS: LISINOPRIL 20 MG TAB PO SCH (09:00)
[2016-04-21] MEDS: SODIUM CHLORIDE 1 GM TAB PO SCH ×2 (09:00→21:03)
[2016-04-21] MEDS: LEVOFLOXACIN 500 MG TAB PO SCH (09:00)
[2016-04-21] MEDS: INSULIN ASPART 100 UNITS/ML 3 ML PEN SC SCH ×4 (09:07→21:08)
[2016-04-21] MEDS: HEPARIN SOD 5000 UNIT/0.5 ML CARP SQ SCH ×2 (09:08→21:10)
[2016-04-21] MEDS: INSULIN GLARGINE SOLOSTAR 100 UNITS/ML 3 ML PEN SC SCH (09:09)
[2016-04-21 11:12] VITALS: BP 144/57; PULSE 73; TEMP 37.2; O2SAT 93
--- NOTE | 2016-04-21 11:58 | Hospitalist Progress Note ---
Hospitalist Progress Note Date of Service Apr 21, 2016. Subjective Pt evaluation today including: conversation w/ patient, physical exam, chart review, lab review, review of studies, review of inpatient medication list PO Intake: Tolerating PO diet Voiding: no voiding problems The patient states that she still feels weak. She went to the bathroom and had trouble pulling up her adult diapers and was therefore exerting herself. She states that she has been shaking since then. She did not wake up shaky. The patient still complains o f a dry, non-productive cough. She states she has a sore throat from her coughing, but that it only affects the right side of her throat. She states that she only has pain when she is swallowing, not at rest. The patient denies fevers, chills, sweats, chest pain, palpitations, claudication, wheezing, shortness of breath, nausea, vomiting, abdominal pain, dysuria, hematuria, urinary retention, paralysis, numbness and tingling. Additional Comments: See HPI for pertinent positives and negatives. All other systems reviewed and negative. Objective Vital Signs Date Time Temp Pulse Resp B/P Pulse Ox O2 Delivery O2 Flow Rate FiO2 04/21/16 11:12 37.2 73 16 144/57 93 Room Air 04/21/16 07:37 Room Air 04/21/16 06:58 36.8 66 17 152/60 95 Room Air 04/21/16 03:56 36.8 93 16 147/68 93 Room Air 04/21/16 00:00 Room Air 04/20/16 23:00 37.2 68 16 137/75 94 Room Air 04/20/16 19:15 Room Air 04/20/16 19:13 36.7 66 16 180/71 95 Room Air 04/20/16 15:45 Room Air 04/20/16 15:17 36.2 67 16 101/53 94 Room Air 04/20/16 13:49 54 04/20/16 12:02 50 106/53 04/20/16 11:20 37.0 53 16 97/50 97 Room Air 04/20/16 11:19 37.0 72 16 95 Room Air Physical Exam General Appearance: WD/WN, no apparent distress Eyes: normal inspection, PERRL, EOMI ENT: normal ENT inspection, hearing grossly normal, pharynx normal Neck: supple, no adenopathy, no JVD, trachea midline Respiratory/Chest: lungs clear, normal breath sounds, no respiratory distress, + decreased breath sounds Cardiovascular: regular rate, rhythm, no gallop, no murmur Abdomen: normal bowel sounds, non tender, soft Extremities: non-tender, normal inspection, no pedal edema Neurologic/Psychiatric: alert, normal mood/affect, oriented x 3 Skin: normal color, warm/dry, no rash Laboratory Results Last 24 Hours Test 04/20/16 16:40 04/20/16 19:05 04/20/16 20:40 04/21/16 07:05 Bedside Glucose 129 mg/dl 217 mg/dl Urine Osmolality 437 mOms/kg Urine Random Sodium 7 mEq/L White Blood Count 5.25 K/uL Red Blood Count 4.11 M/uL Hemoglobin 11.7 g/dL Hematocrit 33.5 % Mean Corpuscular Volume 81.5 fL Mean Corpuscular Hemoglobin 28.5 pg Mean Corpuscular Hemoglobin Concent 34.9 g/dl RDW Standard Deviation 43.1 fL RDW Coefficient of Variation 14.4 % Platelet Count 247 K/uL Mean Platelet Volume 10.1 fL Sodium Level 125 mmol/L Potassium Level 4.0 mmol/L Chloride Level 91 mmol/L Carbon Dioxide Level 21 mmol/L Anion Gap 13.0 mmol/L Blood Urea Nitrogen 37 mg/dl Creatinine 2.20 mg/dl Est Creatinine Clear Calc Drug Dose 12.3 ml/min Estimated GFR () 22.6 Estimated GFR (Non- 19.5 BUN/Creatinine Ratio 16.9 Random Glucose 183 mg/dl Calcium Level 8.7 mg/dl Magnesium Level 2.3 mg/dl Cortisol AM Sample 28.49 mcg/dl Test 04/21/16 07:21 Bedside Glucose 173 mg/dl Assessment and Plan 85 y/o female with a history of DM II, CKD Stage III, and HTN who presents for a direct admission on 04/18 with a non-productive cough, sore throat, and generalized weakness with falls x 4 days. Initial labs upon admission reveal: Na 124, Potassium 3.2, BNP 1775, TSH 2.110, and Trop 0.056. CXR performed here suggest possible R thoracic inlet mass questionable thyroid goiter. Patient is afebrile without leukocytosis. She will be admitted to telemetry for further evaluation and care. REGGIE Superimposed on CKD Stage III: baseline creatinine 1.5-1.6. Cr 2.1 on admission suggesting some acute failure, improved to 1.7 after receiving IVF, back up to 2.1 when fluids stopped and fluid restriction placed -Creatinine 2.2 on 04/21 -IVF NSS at 80 cc/hr -Hold lisinopril -Continue to monitor Cr Weakness and falls due to pharyngitis, dehydration, hyponatremia: improved strength but not at baseline -Continue Levaquin for pharyngitis, complete 7 days total, on day #4 -PT/OT ordered - recommend acute rehab -CM consulted Elevated Troponin: Possibly 2/2 REGGIE will R/O ACS -Serial cardiac enzymes - initial trop 0.056, repeats both 0.07, doubt any clinical significance, no chest pain or EKG changes -Likely up due to renal failure, safe to transfer off telemetry Hyponatremia: initially thought to be dehydration, Na up to 133 with NSS over night, but now repeat is 128 -Serum osmolality just slightly low at 273 -Urine osmolality low at 437 -TSH normal -AM cortisol level 28.49, not taking thiazide as outpatient -Continue sodium chloride 1gm BID and follow sodium level Bradycardia--resolved -Due to incorrect home dose of Toprol, corrected to 25mg from 50mg, monitor HR Hypokalemia--resolved -Received IV and PO replacement HTN: -Felodipine 5 mg daily -Hold Lisinopril 20 mg daily due to REGGIE -Metoprolol Succ 25mg daily -Hydralazine PRN T2DM: -Lantus 16 units SC q am -Insulin sliding scale -Check BSGs q ac and qhs Frequent Falls: -PT/OT Evaluations: rehab DVT Prophylaxis: -Heparin 5000 units Q12H Code Status -Level I, FULL RESUSCITATION STATUS
[2016-04-21] MEDS: SODIUM CHLORIDE 0.9% 1000ML 1,000 ML IV SCH ×2 (13:45→23:52)
[2016-04-21 15:20] VITALS: BP 155/71; PULSE 71; TEMP 36.6; O2SAT 93
[2016-04-21] MEDS: SIMVASTATIN 10 MG TAB PO SCH (21:04)
[2016-04-21] MEDS ORDERED: NURSING VERBAL MED ORDER ONE (22:45)
[2016-04-21 23:10] VITALS: BP 165/61; PULSE 82; TEMP 37.1; O2SAT 93
[2016-04-21] MEDS: GUAIFENESIN SUGAR FREE 200 MG/10 ML UDC PO PRN (23:52)
[2016-04-22] VITALS (7 sets, daily range): BP systolic 114–189; BP diastolic 55–84; PULSE 82–99; TEMP 36.3–37.1; O2SAT 93–96
[2016-04-22] MEDS: HydrALAZINE HCL 20 MG/ML VIAL IV. PRN ×2 (04:10→20:37)
[2016-04-22 07:32] LABS: HEMATOCRIT 33.6 % (37-47); MEAN CORPUSCULAR HEMOGLOBIN 28.7 pg (25-34); MEAN CORPUSCULAR HGB CONC 35.4 g/dl (32-36); PLATELET COUNT 297 K/uL (130-400); RED BLOOD COUNT 4.15 M/uL (4.2-5.4); WHITE BLOOD COUNT 7.23 K/uL (4.8-10.8)
[2016-04-22 07:59] LABS: BUN/CREATININE RATIO 19.2 (10-20); CALCIUM 8.7 mg/dl (8.5-10.1); CREATININE 1.7 mg/dl (0.60-1.20); POTASSIUM 3.7 mmol/L (3.5-5.1)
[2016-04-22] MEDS: SODIUM CHLORIDE 1 GM TAB PO SCH ×2 (08:56→21:24)
[2016-04-22] MEDS: FELODIPINE 5 MG TABCR PO SCH (08:56)
[2016-04-22] MEDS: METOPROLOL SUCC 25MG EXT REL TAB PO SCH (08:57)
[2016-04-22] MEDS: INSULIN GLARGINE SOLOSTAR 100 UNITS/ML 3 ML PEN SC SCH (09:04)
[2016-04-22] MEDS: INSULIN ASPART 100 UNITS/ML 3 ML PEN SC SCH ×4 (09:04→21:26)
[2016-04-22] MEDS: HEPARIN SOD 5000 UNIT/0.5 ML CARP SQ SCH ×2 (09:05→21:27)
[2016-04-22] MEDS ORDERED: LEVOFLOXACIN CONSULT ACTIVE PRN (10:15)
[2016-04-22] MEDS: SODIUM CHLORIDE 0.9% 1000ML 1,000 ML IV SCH ×2 (11:57→23:58)
[2016-04-22] MEDS: GUAIFENESIN SUGAR FREE 200 MG/10 ML UDC PO PRN (12:03)
--- NOTE | 2016-04-22 15:26 | Hospitalist Progress Note ---
Hospitalist Progress Note Date of Service Apr 22, 2016. Subjective Pt evaluation today including: conversation w/ patient, conversation w/ family (spoke to daughter Shannan Westbrook on phone (cell [phone]) and sister Raegan Montgomery in room), physical exam, chart review, lab review, review of inpatient medication list PO Intake: Tolerating PO diet Voiding: no voiding problems Patient feeling well. She still complains of weakness and fatigue but think that it is improved from yesterday. She is no longer shaky. She states that she has some trouble swallowing the sodium chloride tablets because they stick to her tongue, but she is able to swallow her other mediations and food fine without difficulty. She is anxious for discharge. The patient denies fevers, chills, sweats, chest pain, palpitations, claudication, cough, wheezing, shortness of breath, nausea, vomiting, abdominal pain, dysuria, hematuria, urinary retention, paralysis, muscle weakness, numbness and tingling. Additional Comments: See HPI for pertinent positives and negatives. All other systems reviewed and negative. Objective Vital Signs Date Time Temp Pulse Resp B/P Pulse Ox O2 Delivery O2 Flow Rate FiO2 04/22/16 11:41 36.3 86 14 133/57 93 Room Air 04/22/16 07:37 36.8 89 16 161/64 95 Room Air 04/22/16 07:00 Room Air 04/22/16 05:21 153/61 04/22/16 04:07 36.9 82 18 189/84 93 Room Air 04/21/16 23:56 Room Air 04/21/16 23:10 37.1 82 16 165/61 93 Room Air 04/21/16 16:15 Room Air 04/21/16 15:20 36.6 71 16 155/71 93 Room Air Physical Exam General Appearance: WD/WN, no apparent distress Eyes: normal inspection, PERRL, EOMI ENT: normal ENT inspection, hearing grossly normal, pharynx normal Neck: supple, no JVD, trachea midline Respiratory/Chest: lungs clear, normal breath sounds, no respiratory distress, + decreased breath sounds Cardiovascular: regular rate, rhythm, no gallop, no murmur Abdomen: normal bowel sounds, non tender, soft Extremities: non-tender, normal inspection, no pedal edema Neurologic/Psychiatric: alert, normal mood/affect, oriented x 3 Skin: normal color, warm/dry, no rash Laboratory Results Last 24 Hours Test 04/21/16 16:33 04/21/16 20:42 04/22/16 07:10 04/22/16 07:58 Bedside Glucose 148 mg/dl 222 mg/dl 181 mg/dl White Blood Count 7.23 K/uL Red Blood Count 4.15 M/uL Hemoglobin 11.9 g/dL Hematocrit 33.6 % Mean Corpuscular Volume 81.0 fL Mean Corpuscular Hemoglobin 28.7 pg Mean Corpuscular Hemoglobin Concent 35.4 g/dl RDW Standard Deviation 42.3 fL RDW Coefficient of Variation 14.2 % Platelet Count 297 K/uL Mean Platelet Volume 10.0 fL Sodium Level 129 mmol/L Potassium Level 3.7 mmol/L Chloride Level 96 mmol/L Carbon Dioxide Level 19 mmol/L Anion Gap 14.0 mmol/L Blood Urea Nitrogen 33 mg/dl Creatinine 1.70 mg/dl Est Creatinine Clear Calc Drug Dose 15.9 ml/min Estimated GFR () 30.9 Estimated GFR (Non- 26.6 BUN/Creatinine Ratio 19.2 Random Glucose 177 mg/dl Calcium Level 8.7 mg/dl Test 04/22/16 11:51 Bedside Glucose 252 mg/dl Assessment and Plan 85 y/o female with a history of DM II, CKD Stage III, and HTN who presents for a direct admission on 04/18 with a non-productive cough, sore throat, and generalized weakness with falls x 4 days. Initial labs upon admission reveal: Na 124, Potassium 3.2, BNP 1775, TSH 2.110, and Trop 0.056. CXR performed here suggest possible R thoracic inlet mass questionable thyroid goiter. Patient is afebrile without leukocytosis. She will be admitted to telemetry for further evaluation and care. REGGIE Superimposed on CKD Stage III: baseline creatinine 1.5-1.6. Cr 2.1 on admission suggesting some acute failure, improved to 1.7 after receiving IVF, back up to 2.1 when fluids stopped and fluid restriction placed -Creatinine 2.2 on 04/21 -Creatinine 1.7 on 04/22 after IVF restarted -BUN improved to 33 and GFR improved to 26.6 on 04/22 -IVF NSS at 80 cc/hr -Hold lisinopril -Continue to monitor Cr Weakness and falls due to pharyngitis, dehydration, hyponatremia: improved strength but not at baseline -Continue Levaquin for pharyngitis, complete 7 days total, on day #4. Levaquin renally dosed to 250 mg q2d -PT/OT ordered - recommend acute rehab -CM consulted Elevated Troponin: Possibly 2/2 REGGIE will R/O ACS -Serial cardiac enzymes - initial trop 0.056, repeats both 0.07, doubt any clinical significance, no chest pain or EKG changes -Likely up due to renal failure, safe to transfer off telemetry Hyponatremia--improving. Initially thought to be dehydration, Na up to 133 with NSS over night, but now repeat is 128 -Sodium 129 on 04/22, improved from 125 on 12 -Serum osmolality just slightly low at 273 -Urine osmolality low at 437 -TSH normal -AM cortisol level 28.49, not taking thiazide as outpatient -Continue sodium chloride 1 gm BID, IVF as above and follow sodium level Bradycardia--resolved -Due to incorrect home dose of Toprol, corrected to 25mg from 50mg, monitor HR Hypokalemia--resolved -Received IV and PO replacement HTN: -Felodipine 5 mg daily -Hold Lisinopril 20 mg daily due to REGGIE -Metoprolol Succ 25mg daily -Hydralazine PRN T2DM: -Lantus 16 units SC q am -Insulin sliding scale -Check BSGs q ac and qhs Frequent Falls: -PT/OT Evaluations: rehab DVT Prophylaxis: -Heparin 5000 units Q12H Code Status -Level I, FULL RESUSCITATION STATUS Dispo -Anticipate discharge tomorrow as pt is improving on IVF. PT recommends acute inpatient rehab. Patient is refusing to do inpatient therapy. She states that she just wants to go home and does not want to stay anywhere else. I strongly recommended that she pursue inpatient rehab as it was not safe for her to go home in her current condition as she lives by herself. She states that her sister is going to stay with her for a few days. I discussed with her the risks of not going to rehab, such as increasing weakness, more falls, and readmission to the hospital. She accepts these risks and wants to have PT come to her home instead. This was also discussed with her daughter, Shannan Westbrook ( cell # [phone]) and sister, Raegan Montgomery. Case management is following, a referral being placed to [facility].
[2016-04-22] MEDS: SIMVASTATIN 10 MG TAB PO SCH (21:23)
[2016-04-23 03:42] VITALS: BP 167/69; PULSE 85; TEMP 36.9; O2SAT 96
[2016-04-23 07:23] VITALS: BP 145/66; PULSE 90; TEMP 36.9; O2SAT 96
[2016-04-23] MEDS: INSULIN ASPART 100 UNITS/ML 3 ML PEN SC SCH ×2 (08:00→12:38)
[2016-04-23 08:04] LABS: HEMATOCRIT 31.3 % (37-47); MEAN CELL VOLUME 82.2 fL (80-100); MEAN CORPUSCULAR HEMOGLOBIN 28.3 pg (25-34); MEAN CORPUSCULAR HGB CONC 34.5 g/dl (32-36); MEAN PLATELET VOLUME 9.8 fL (7.4-10.4); PLATELET COUNT 300 K/uL (130-400); RED BLOOD COUNT 3.81 M/uL (4.2-5.4); WHITE BLOOD COUNT 5.71 K/uL (4.8-10.8)
[2016-04-23 08:32] LABS: CALCIUM 8.9 mg/dl (8.5-10.1); CREATININE 1.5 mg/dl (0.60-1.20); MAGNESIUM 1.9 mg/dl (1.8-2.4); POTASSIUM 3.5 mmol/L (3.5-5.1)
[2016-04-23] MEDS: SODIUM CHLORIDE 1 GM TAB PO SCH (08:56)
[2016-04-23] MEDS: METOPROLOL SUCC 25MG EXT REL TAB PO SCH (08:56)
[2016-04-23] MEDS: FELODIPINE 5 MG TABCR PO SCH (08:57)
[2016-04-23] MEDS: INSULIN GLARGINE SOLOSTAR 100 UNITS/ML 3 ML PEN SC SCH (09:00)
[2016-04-23] MEDS: HEPARIN SOD 5000 UNIT/0.5 ML CARP SQ SCH (09:02)
[2016-04-23] MEDS ORDERED: LEVOFLOXACIN 250 MG TAB PO SCH (11:00)
[2016-04-23] MEDS: GUAIFENESIN SUGAR FREE 200 MG/10 ML UDC PO PRN (11:35)
[2016-04-23] MEDS: SODIUM CHLORIDE 0.9% 1000ML 1,000 ML IV SCH (12:38)
[2016-04-23] MEDS ORDERED: LVQ250 PO (14:34)
--- NOTE | 2016-04-23 14:58 | Discharge Instructions ---
Discharge Instructions Admission Reason for Admission: Chf,Frequent Falls Discharge Discharge Diagnosis / Problem: Weakness, Hyponatremia Discharge Goals Goal(s): Improve function, Improve nutritional status, Diagnostic testing, Therapeutic intervention Activity Recommendations Activity Limitations: as noted below Lifting Limitations: no more than 10 pounds Exercise/Sports Limitations: gradually increase as tolerated Shower/Bathe: no limitations Gradually increase activity as tolerated and as recommended by home physical therapy services. . Instructions / Follow-Up Instructions / Follow-Up You were admitted to the hospital with a cough, sore throat, weakness and frequent falls. You were found to have worsening kidney function as well as low sodium in potassium in your blood. An echocardiogram, or an ultrasound of your heart, was done, but this did not show any significant changes when compared to your last study. Your cough and sore throat were suspected to be due to bacterial pharyngitis, and you were started on an antibiotic called Levaquin. The potassium and sodium in your blood was replaced with IV fluids and IV electrolyte supplementation. The IV fluids also improved your kidney function, which may have contributed to your low sodium in the blood. Be sure to have adequate oral intake and food and liquids, as dehydration will worsen your kidney function again. Your symptoms did begin to improve, although your strength was still not back to your baseline. You were evaluated by physical therapy, and they did not think it was safe for you to return home in your current condition, especially because you live alone. Physical therapy recommended a stay at an inpatient acute rehab facility. You refused to do inpatient rehab, and we discussed the risks of not pursuing inpatient rehab such as increasing weakness, more falls, and readmission to the hospital. Instead, you will be sent home with home health services and home physical therapy. Since you live along, it is strongly recommend that you have family stay with you whenever they can to help with your daily activities since you are weaker than usual. A prescription for the antibiotic, Levaquin, was sent electronically to your pharmacy. You received 5 doses of the antibiotic while in the hospital. You have 2 more doses left to complete the course. Due to your kidney function, you will take this medication every other day. Please take Levaquin 250 mg by mouth every other day over the next 4 days. You received a dose today before discharge, so you next dose will be due 04/25/16 with your last dose on 04/27/16. Please follow up with your primary care provider in 1 week regarding your recent hospital stay. Please seek medical attention if you experience fevers, chest pain, shortness of breathing, shakiness, seizures, loss of consciousness, confusion, nausea, vomiting, or more falls. Current Hospital Diet Patient's current hospital diet: Diabetes Type 2 Diet Discharge Diet Recommended Diet: Diabetes Type 2 Diet Pending Studies Studies pending at discharge: no Medical Emergencies . Who to Call and When: Medical Emergencies: If at any time you feel your situation is an emergency, please call 911 immediately. . Non-Emergent Contact Non-Emergency issues call your: Primary Care Provider Call Non-Emergent contact if: you have any medication questions . Past History Medical & Surgical History: (1) Hyponatremia (2) Weakness (3) Frequent falls . "Provider Documentation" section prepared by Day Cedeno. VTE Core Measure Inpt VTE Proph given/why not?: Unfractionated heparin SQ, T.E.D. Stockings, SCD 's
--- NOTE | 2016-04-23 15:08 | Discharge Summary ---
Discharge Summary Admission Date: Apr 18, 2016 at 13:26 Discharge Date: Apr 23, 2016 Discharge Disposition: Home with services Principal Diagnosis: Hyponatremia, Weakness Immunizations: Have You Had Influenza Vaccine: No History of Tetanus Vaccine?: No History of Pneumococcal: Yes Pneumococcal Date: Jun 27, 2002 History of Hepatitis B Vaccine: No Medication Reconciliation New Medications: Levofloxacin (Levofloxacin) 250 Mg Tab 250 MG PO Q2D@1100 for 4 Days, #2 TAB Take 1 tablet by mouth every OTHER day. First dose due 04/25/16, second dose on 04/27/16. Continued Medications: Cholecalciferol (Vitamin D3) 1,000 Inter.unit Tab 2000 UNITS PO DAILY Cyanocobalamin (Vitamin B-12) 1,000 Mcg Tab 1000 MCG PO DAILY, 0 Refills Felodipine (Plendil) 5 Mg Tabcr 5 MG PO DAILY, TAB Insulin Glargine (Lantus) 100 Unit/Ml Inj 16 SC QAM, VIAL Lisinopril (Lisinopril) 20 Mg Tab 20 MG PO QAM for 30 Days, TAB Metoprolol Succ (Toprol Xl) (Toprol-Xl) 25 Mg Tabcr 25 MG PO DAILY, #30 TAB Ocuvite Preservision (Ocuvite Preservision) 1 Tab Tab 1 TAB PO DAILY, 0 Refills Simvastatin (Zocor) 10 Mg Tab 10 MG PO QPM Tocopheryl Acet,Dl-Alpha (Vitamin E) 400 Inter.unit Cap 400 INTER.UNIT PO DAILY, 0 Refills Discharge Exam Patient reports feeling well with no complaints. She states that she feels even stronger than yesterday. She is eager for discharge home and reiterated that she did not want to do in patient rehab at this time. Review of Systems: Constitutional: + fatigue (improved), + weakness (improved), No chills, No fever, No sweats Eyes: No diplopia, No eye pain, No worsening of vision ENT: No hearing loss, No sore throat, No tinnitus Respiratory: No cough, No shortness of breath, No wheezing Cardiovascular: No chest pain, No claudication, No palpitations Abdomen: No nausea, No pain, No vomiting Musculoskeletal: No calf pain, No joint pain, No muscle pain Genitourinary - Female: No dysuria, No hematuria, No urinary retention Neurologic: No numbness/tingling, No paralysis, No weakness Integumentary: No color change, No itch, No rash Physical Exam: General Appearance: WD/WN, no apparent distress Eyes: normal inspection, PERRL, EOMI ENT: normal ENT inspection, hearing grossly normal, pharynx normal Neck: supple, no JVD, trachea midline Respiratory/Chest: lungs clear, normal breath sounds, no respiratory distress, + decreased breath sounds Cardiovascular: regular rate, rhythm, no gallop, no murmur Abdomen / GI: normal bowel sounds, non tender, soft Extremities: normal inspection, no calf tenderness, no pedal edema Neurologic/Psychiatric: alert, normal mood/affect, oriented x 3 Skin: normal color, warm/dry, no rash Hospital Course 85 y/o female with a history of DM II, CKD Stage III, and HTN who presents for a direct admission on 04/18 with a non-productive cough, sore throat, and generalized weakness with falls x 4 days. Initial labs upon admission reveal: Na 124, Potassium 3.2, BNP 1775, TSH 2.110, and Trop 0.056. CXR performed here suggest possible R thoracic inlet mass questionable thyroid goiter. Patient is afebrile without leukocytosis. She will be admitted to telemetry for further evaluation and care. REGGIE Superimposed on CKD Stage III: baseline creatinine 1.5-1.6. Cr 2.1 on admission suggesting some acute failure, improved to 1.7 after receiving IVF, back up to 2.1 when fluids stopped and fluid restriction placed -Creatinine 2.2 on 04/21 -Creatinine 1.7 on 04/22 after IVF restarted. Creatinine 1.5 on 04/23, back to baseline -BUN improved to 33 and GFR improved to 26.6 on 04/22. BUN 23, GFR 31.0 on 04/23 with continued IVF -IVF NSS at 80 cc/hr. Encouraged that pt stay hydrated at discharge. -May resume lisinopril on discharge as renal function back to baseline Weakness and falls due to pharyngitis, dehydration, hyponatremia: improved strength but not at baseline -Continue Levaquin for pharyngitis, complete 7 days total, on day #5. Levaquin renally dosed to 250 mg q2d, received 5th dose on 04/25. Script sent to pharmacy for remaining 2 doses q2d -PT/OT ordered - recommend acute rehab. Pt refuses. -CM consulted Elevated Troponin: Possibly 2/2 REGGIE will R/O ACS -Serial cardiac enzymes - initial trop 0.056, repeats both 0.07, doubt any clinical significance, no chest pain or EKG changes -Likely up due to renal failure, safe to transfer off telemetry Hyponatremia--improving. Initially thought to be dehydration, Na up to 133 with NSS over night, but now repeat is 128 -Sodium 129 on 04/22, improved from 125 on 04/21 -Sodium 134 on 04/23 prior to discharge -Serum osmolality just slightly low at 273 -Urine osmolality low at 437 -TSH normal -AM cortisol level 28.49, not taking thiazide as outpatient -Encourage hydration at home, will need to follow up with PCP Bradycardia--resolved -Due to incorrect home dose of Toprol, corrected to 25mg from 50mg, monitor HR Hypokalemia--resolved -Received IV and PO replacement HTN: -Felodipine 5 mg daily -Resume Lisinopril 20 mg daily at discharge -Metoprolol Succ 25mg daily T2DM: -Lantus 16 units SC q am -Insulin sliding scale -Check BSGs q ac and qhs Frequent Falls: -PT/OT Evaluations: rehab DVT Prophylaxis: -Heparin 5000 units Q12H Code Status -Level I, FULL RESUSCITATION STATUS Dispo -PT recommends acute inpatient rehab. Patient is refusing to do inpatient therapy. She states that she just wants to go home and does not want to stay anywhere else. I strongly recommended that she pursue inpatient rehab as it was not safe for her to go home in her current condition as she lives by herself. She states that her sister is going to stay with her for a few days. I discussed with her the risks of not going to rehab, such as increasing weakness, more falls, and readmission to the hospital. She accepts these risks and wants to have PT come to her home instead. This was also discussed with her daughter, Shannan Westbrook (cell # [phone]) and sister, Raegan Montgomery. Case management is following, a referral placed to [facility]. Total Time Spent: Greater than 30 minutes This includes examination of the patient, discharge planning, medication reconciliation, and communication with other providers. Discharge Instructions Please refer to the electronic Patient Visit Report (Discharge Instructions) for additional information.
--- NOTE | 2016-04-24 05:51 | EDITING REQUIRED CODING QUERY ---
CONGESTIVE HEART FAILURE To promote full compliance with coding requirements relating to patient care, physician participation is requested in all cases of maori liaison adviser uncertainty. Please assist us with the following questions. A diagnosis of Congestive Heart Failure is documented in the patient's medical record. To accurately code this diagnosis and to compare patient severity, we ask that you specify the type of heart failure by placing an X within the parenthesis (x). SYSTOLIC HEART FAILURE ( ) Acute ( ) Chronic ( ) Acute on Chronic ( ) Rheumatic ( ) Unknown DIASTOLIC HEART FAILURE ( ) Acute ( ) Chronic ( ) Acute on Chronic ( ) Rheumatic ( ) Unknown COMBINED SYSTOLIC AND DIASTOLIC HEART FAILURE ( ) Acute ( ) Chronic ( ) Acute on Chronic ( ) Rheumatic ( ) Unknown Was the CHF Present On Admission? Please check the appropriate box: ( ) Present on Admission ( x) Not Present On Admission, and patient has no CHF ( ) Clinically undetermined Thank you for your time, SHONNA Chisholm, HVAC JOURNEYMAN
== END 2016-04-23 15:56 | disposition home health service (06) | DRG 683 ==
LOC: ENRESERVDT → ENRESERVTM → C.2T 13:26 → C.MSN 04-19 13:10
PROVIDERS: ADMIT Internal Medicine; ATTEND Hospitalist
DX: N17.9 Acute kidney failure, unspecified (principal); E87.1 Hypo-osmolality and hyponatremia; E87.6 Hypokalemia; R53.1 Weakness; E86.0 Dehydration; J02.9 Acute pharyngitis, unspecified; R00.1 Bradycardia, unspecified; T44.7X1A Poisoning by beta-adrenoreceptor antagonists, accidental (unintentional), initial encounter; Y92.230 Patient room in hospital as the place of occurrence of the external cause; R29.6 Repeated falls; R79.89 Other specified abnormal findings of blood chemistry; E04.9 Nontoxic goiter, unspecified; E11.22 Type 2 diabetes mellitus with diabetic chronic kidney disease; I13.10 Hypertensive heart and chronic kidney disease without heart failure, with stage 1 through stage 4 chronic kidney disease, or unspecified chronic kidney disease; N18.3 Chronic kidney disease, stage 3 (moderate); Z87.891 Personal history of nicotine dependence; Z79.4 Long term (current) use of insulin; Z79.899 Other long term (current) drug therapy; R05 Cough

== ENCOUNTER → 2016-08-07 | Outpatient (CLI) | payer OTHER, BC ==
[~2016-08-07] MED LIST changes: -CTP2 PO; -FLX5 PO; +INSDGI SC; -INSDGIPEN SC; +LVQ250 PO; +METO25TA3 PO; -TPRSR50 PO
[2016-08-07 14:20] LABS: ESTIMATED AVERAGE GLUCOSE 212 mg/dl; HA1C FLAG Normal (Normal)
[2016-08-07 14:21] LABS: CHOLESTEROL/HDL RATIO 2.1; THYROID STIMULATING HORMONE 2.87 uIu/ml (0.300-4.500)
--- NOTE | 2016-08-12 10:17 | CODING QUERY MEDICAL NECESSITY ---
SUPPORTING DIAGNOSIS NEEDED A supporting diagnosis is required for the test/procedure performed on this patient in order for us to be reimbursed by the patient's insurance. Please provide a supporting diagnosis for the following test/procedure listed below next to the test name along with your signature. *If there is no additional diagnosis for this patient that would support the following test/procedure please document that below next to the test/procedure. Test(s)/Procedure(s) that require a supporting diagnosis: DOS 08/07 * Vitamin D DIAGNOSIS: Provider Signature: Date: Thank you [facility] Information Management Once completed, please kindly fax back to [phone] For questions please call [phone]
== END | disposition home or self-care (01) ==
LOC: C.LABBC 10:36
PROVIDERS: ATTEND Nurse Practitioner Family
DX: E11.65 Type 2 diabetes mellitus with hyperglycemia (principal); I10 Essential (primary) hypertension; E55.9 Vitamin D deficiency, unspecified

== ENCOUNTER → 2016-09-04 | Outpatient (CLI) | payer OTHER, BC ==
[2016-09-04 15:39] LABS: HEMATOCRIT 37.6 % (37-47); MEAN CORPUSCULAR HEMOGLOBIN 29.2 pg (25-34); MEAN CORPUSCULAR HGB CONC 32.4 g/dl (32-36); MEAN PLATELET VOLUME 10.2 fL (7.4-10.4); PLATELET COUNT 337 K/uL (130-400); RED BLOOD COUNT 4.18 M/uL (4.2-5.4); WHITE BLOOD COUNT 10.09 K/uL (4.8-10.8)
[2016-09-04 15:50] LABS: URINE APPEARANCE CLEAR (CLEAR); URINE BILIRUBIN NEG (NEG); URINE COLOR YELLOW; URINE NITRITE NEG (NEG); URINE PH 7.5 (4.5-7.5); UROBILINOGEN NEG (NEG)
[2016-09-04 16:00] LABS: BLOOD UREA NITROGEN 34 mg/dl (7-18); BUN/CREATININE RATIO 17.7 (10-20); CALCIUM 9.4 mg/dl (8.5-10.1); CARBON DIOXIDE 27 mmol/L (21-32); CHLORIDE 102 mmol/L (98-107); GLUCOSE 245 mg/dl (70-99); POTASSIUM 4.2 mmol/L (3.5-5.1); SODIUM 137 mmol/L (136-145)
[2016-09-04 16:01] LABS: MANUAL MICROSCOPIC REQUIRED? NO; REVIEW REQ? NO
[2016-09-04 16:02] LABS: SULFASALICYLIC ACID POS (NEG)
[2016-09-04 16:06] LABS: FERRITIN 111.7 ng/ml (8.0-388.0); TOTAL IRON BINDING CAPACITY 373 mcg/dl (250-450); URINE PROTIEN/CREAT RATIO 4.8 (0-0.2); URINE TOTAL PROTEIN 95.4 mg/dl (0-11.9)
== END | disposition home or self-care (01) ==
LOC: C.LAB1850 14:48
PROVIDERS: ATTEND Internal Medicine Nephrology
DX: N18.3 Chronic kidney disease, stage 3 (moderate) (principal); D63.1 Anemia in chronic kidney disease

== ENCOUNTER → 2016-12-31 | Outpatient (CLI) | payer OTHER, BC ==
[2016-12-31 13:54] LABS: ALT/SGPT 18 U/L (12-78); AST/SGOT 17 U/L (15-37); BLOOD UREA NITROGEN 30 mg/dl (7-18); BUN/CREATININE RATIO 15.7 (10-20); CALCIUM 9.7 mg/dl (8.5-10.1); CARBON DIOXIDE 26 mmol/L (21-32); CHLORIDE 100 mmol/L (98-107); GLUCOSE 256 mg/dl (70-99); HDL CHOLESTEROL 91 mg/dl; POTASSIUM 4.1 mmol/L (3.5-5.1); SODIUM 134 mmol/L (136-145)
[2016-12-31 14:05] LABS: ALKALINE PHOSPHATASE 92 U/L (45-117); CHOLESTEROL 175 mg/dl (0-200); CHOLESTEROL/HDL RATIO 1.9; LDL CHOLESTEROL CALCULATED 52 mg/dl; TRIGLYCERIDES 159 mg/dl (0-150); VERY LOW DENSITY LIPOPROT CALC 32 mg/dl
[2016-12-31 14:32] LABS: ESTIMATED AVERAGE GLUCOSE 217 mg/dl; HA1C FLAG Normal (Normal)
--- NOTE | 2017-01-09 13:41 | CODING QUERY MEDICAL NECESSITY ---
SUPPORTING DIAGNOSIS NEEDED A supporting diagnosis is required for the test/procedure performed on this patient in order for us to be reimbursed by the patient's insurance. Please provide a supporting diagnosis for the following test/procedure listed below next to the test name along with your signature. *If there is no additional diagnosis for this patient that would support the following test/procedure please document that below next to the test/procedure. Test(s)/Procedure(s) that require a supporting diagnosis: * HEMOGLOBIN A1C DIAGNOSIS: Provider Signature: Date: Thank you Candis Sears [facility] [employer] Information Management Once completed, please kindly fax back to [phone] For questions please call [phone]
== END | disposition home or self-care (01) ==
LOC: C.LABBC 12:10
PROVIDERS: ATTEND Internal Medicine
DX: E55.9 Vitamin D deficiency, unspecified (principal); E11.8 Type 2 diabetes mellitus with unspecified complications

== ENCOUNTER → 2017-03-30 | Outpatient (CLI) | payer OTHER, BC ==
--- NOTE | 2017-03-31 07:48 | MAMMOGRAPHY REPORT ---
BILATERAL DIGITAL SCREENING MAMMOGRAM WITH CAD: 03/30/2017 CLINICAL HISTORY: Routine screening. Patient has no complaints. TECHNIQUE: Bilateral CC, MLO and repeat left MLO views were obtained. Current study was also evalua lizz with a Computer Aided Detection (CAD) system. COMPARISON: Comparison is made to exams dated: 03/26/2016 mammogram, 03/23/2015 mammogram, 03/22/2014 m ammogram, 03/21/2013 mammogram, 03/15/2012 mammogram, and 03/08/2010 mammogram - [facility]. BREAST COMPOSITION: The tissue of both breasts is heterogeneously dense, which may obscure small mas ses. FINDINGS: The parenchymal pattern is similar to prior mammograms. There are mild to moderate vascul ar calcifications in the breasts. A few benign coarse calcifications. No developing mass, it architect ural distortion or cluster of suspicious microcalcifications is seen in either breast. IMPRESSION: ACR BI-RADS CATEGORY 2: BENIGN There is no mammographic evidence of malignancy. A 1 year screening mammogram is recommended. The pa tient will receive written notification of the results. Approximately 10% of breast cancers are not detected with mammography. A negative mammographic report should not delay biopsy if a clinically suggestive mass is present. Kisha Leo M.D. ay/:03/30/2017 12:32:41 Face Hardener: Pili Yu, [facility] letter sent: Normal 1/2 BI-RADS Code: ACR BI-RADS Category 2: Benign
== END | disposition home or self-care (01) ==
LOC: C.MAMM 10:50
PROVIDERS: ATTEND Internal Medicine
DX: Z12.31 Encounter for screening mammogram for malignant neoplasm of breast (principal)

== ENCOUNTER → 2017-07-01 | Outpatient (CLI) | payer OTHER, BC ==
[2017-07-01 13:22] LABS: BASO % 0.5 %; BASO ABS # 0.05 K/uL (0-0.2); EOS % 0.4 %; EOS ABS # 0.04 K/uL (0-0.5); HEMATOCRIT 35.3 % (37-47); HEMOGLOBIN 12.1 g/dL (12.0-16.0); IG# 0.02 K/uL (0.00-0.02); LYMPH % 20.5 %; MEAN CELL VOLUME 87.8 fL (80-100); MEAN CORPUSCULAR HEMOGLOBIN 30.1 pg (25-34); MEAN CORPUSCULAR HGB CONC 34.3 g/dl (32-36); MEAN PLATELET VOLUME 10.2 fL (7.4-10.4); MONO ABS # 0.97 K/uL (0.11-0.59); NEUT % 69.4 %; NEUT ABS # 7.47 K/uL (1.4-6.5); PLATELET COUNT 314 K/uL (130-400); RED CELL DISTRIBUTION WIDTH CV 13.4 % (11.5-14.5); RED CELL DISTRIBUTION WIDTH SD 43.3 fL (36.4-46.3); WHITE BLOOD COUNT 10.75 K/uL (4.8-10.8)
[2017-07-01 17:10] LABS: ALBUMIN 4.1 gm/dl (3.4-5.0); ALT/SGPT 18 U/L (12-78); AST/SGOT 17 U/L (15-37); BLOOD UREA NITROGEN 32 mg/dl (7-18); CALCIUM 9.9 mg/dl (8.5-10.1); CARBON DIOXIDE 27 mmol/L (21-32); CREATININE 1.94 mg/dl (0.60-1.20); GLUCOSE 255 mg/dl (70-99); SODIUM 135 mmol/L (136-145)
[2017-07-01 17:21] LABS: ALKALINE PHOSPHATASE 93 U/L (45-117)
[2017-07-02 07:23] LABS: HEMOGLOBIN A1C 9.1 % (4.5-5.6)
== END | disposition home or self-care (01) ==
LOC: C.LABBC 12:13
PROVIDERS: ATTEND Internal Medicine
DX: I10 Essential (primary) hypertension (principal); N18.3 Chronic kidney disease, stage 3 (moderate); E11.8 Type 2 diabetes mellitus with unspecified complications; E11.65 Type 2 diabetes mellitus with hyperglycemia; E11.29 Type 2 diabetes mellitus with other diabetic kidney complication; D63.1 Anemia in chronic kidney disease